=== PATIENT | female | born 1965 | race Caucasian/White ===

== ENCOUNTER 2018-05-30 14:19 | Emergency (ER) | payer BC, MEDICARE ==
[2018-05-30] MEDS ORDERED: NS 0.9% 1000 ML** 1,000 ML IV ONE ×2 (15:21→17:01)
--- NOTE | 2018-05-30 15:21 | ED ---
Abdominal Pain/Female - HPI Summary HPI Summary: This patient is a 53 year old F presenting to [facility] accompanied by a male with a chief complaint of sharp, burning right-sided flank pain since last night. The patient rates the pain 8/10 in severity. Symptoms alleviated by nothing. Patient reports dysuria, bilateral feet edema, fever, chills, decreased urination, nausea, and difficulty ambulating. Patient denies abdominal pain. 4 days ago, her feet and legs swelled to the point of no longer being able to ambulate. The patient says she has been drinking a lot of water but she barely urinates. The flank pain started last night. The patient has Vicodin at home for chronic neck pain, but it is not alleviating the symptoms. PMHX brain tumor removal, chronic neck pain, and SBO repair. No PMHx kidney stones or CHF. Allergy to Alleve. - History of Current Complaint Chief Complaint: EDFlankPain Stated Complaint: RIGHT FLANK PAIN Time Seen by Provider: 05/30/18 15:06 Hx Obtained From: Patient Onset/Duration: Sudden Onset, Lasting Hours Timing: Constant Severity Initially: Moderate Severity Currently: Moderate Pain Intensity: 8 Pain Scale Used: 0-10 Numeric Location: Flank - right Character: Sharp, Burning Alleviating Factor(s): Nothing Associated Signs and Symptoms: Positive: Fever, Urinary Symptoms - dysuria, Nausea Allergies/Adverse Reactions: Allergies Allergy/AdvReac Type Severity Reaction Status Date / Time naproxen [From Aleve] Allergy Anaphylatic Verified 05/30/18 14:50 Shock Home Medications: Home Medications Hydrocodone/Acetaminophen [Hydrocodone/Acetaminophen 10-325 mg] 1 tab PO TID [History Confirmed 05/30/18] Rizatriptan Benzoate [Rizatriptan Benzoate Odt] 10 mg PO DAILY PRN 05/30/18 [ History Confirmed 05/30/18] PMH/Surg Hx/FS Hx/Imm Hx GI History: Reports: Hx Obstructive Bowel - SBO Musculoskeletal History: Reports: Other Musculoskeletal History - chronic neck pain Neurological History: Reports: Other Neuro Impairments/Disorders - Brain tumor s /p surgery - Cancer History Cancer Type, Location and Year: brain tumor s/p surgery - Surgical History Surgery Procedure, Year, and Place: C-SECTIONS,SX FOR ADHESIONS, CX.SP.SX Infectious Disease History: No Infectious Disease History: Denies: Traveled Outside the [place] in Last 30 Days - Family History Known Family History: Negative: Other - kidney stone - Social History Alcohol Use: None Hx Substance Use: No Substance Use Type: Reports: None Hx Tobacco Use: No Smoking Status (MU): Never Smoked Tobacco Review of Systems Positive: Fever, Chills Positive: Nausea. Negative: Abdominal Pain Positive: dysuria, flank pain - right, other - decreased urination Positive: Decreased ROM - difficulty ambulating, Edema - bilateral LE All Other Systems Reviewed And Are Negative: Yes Physical Exam - Summary Physical Exam Summary: Appearance: The patient is well-nourished in no acute distress and in no acute pain. Skin: The skin is warm and dry and skin color reflects adequate perfusion. HEENT: The head is normocephalic and atraumatic. The pupils are equal and reactive. The conjunctivae are clear and without drainage. Nares are patent and without drainage. Mouth reveals moist mucous membranes and the throat is without erythema and exudate. The external ears are intact. The ear canals are patent and without drainage. The tympanic membranes are intact. Neck: The neck is supple with full range of motion and non-tender. There are no carotid bruits. There is no neck vein distension. Respiratory: Chest is non-tender. Lungs are clear to auscultation and breath sounds are symmetrical and equal. Cardiovascular: Heart is regular rate and rhythm. There is no murmur or rub auscultated. Pulses are symmetrical and equal. Abdomen: The abdomen is soft. Mild right mid abdominal tenderness. There are normal bowel sounds heard in all four quadrants and there is no organomegaly palpated. Musculoskeletal: Tenderness over the right paralumbar region. No CVA tenderness. Extremities are non-tender with full range of motion. There is good capillary refill. There is no calf tenderness elicited. Neurological: Patient is alert and oriented to person, place and time. The patient has symmetrical motor strength in all four extremities. Cranial nerves are grossly intact. Deep tendon reflexes are symmetrical and equal in all four extremities. Psychiatric: The patient has an appropriate affect and does not exhibit any anxiety or depression Triage Information Reviewed: Yes Vital Signs On Initial Exam: Initial Vitals Temp Pulse Resp BP Pulse Ox 96.9 F 120 18 143/96 97 05/30/18 14:45 05/30/18 14:45 05/30/18 14:45 05/30/18 14:45 05/30/18 14:45 Vital Signs Reviewed: Yes Diagnostics - Vital Signs Vital Signs Temp Pulse Resp BP Pulse Ox 05/30/18 14:45 96.9 F 120 18 143/96 97 - Laboratory Result Diagrams: 05/30/18 15:45 05/30/18 15:45 Lab Statement: Any lab studies that have been ordered have been reviewed, and results considered in the medical decision making process. - CT Abd/Pelvis CT Interpretation Completed By: Radiologist Summary of CT Findings: 1. NO EVIDENCE FOR ACUTE FINDING. 2. MARKED HEPATOMEGALY AND HEPATIC STEATOSIS WITH INTERVAL INCREASE IN SIZE OF THE LIVER. FROM THE PRIOR STUDY. 3. 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 INCREASE IN SIZE. 4. SMALL PERIUMBILICAL HERNIA CONTAINING FAT. 5. STATUS POST HYSTERECTOMY. 6. GRADE 1- 2 ANTERIOR SPONDYLOLISTHESIS AT THE L5-S1 LEVEL, UNCHANGED. ED physician has reviewed this report. Abdominal Pain Fem Course/Dx - Course Course Of Treatment: Ms. Merida presented to the emergency department complaining of right flank pain. She was nontoxic in appearance but clearly in some pain. She had stable vital signs. She had some right flank and abdominal tenderness but also some lumbar tenderness. She had no CVA tenderness. Workup was obtained including CT scan and labs which were unremarkable aside from a lactic acidosis of 2.8. She received IV fluids for that. She also received some pain medication. I think that likely she has a referred pain from his some lumbar disc disease. I recommended adding Ativan as a muscle relaxer to her pain medication that she is already on for her neck chronically. - Diagnoses Provider Diagnoses: Back pain Discharge - Sign-Out/Discharge Documenting (check all that apply): Patient Departure - discharge Patient Received Moderate/Deep Sedation with Procedure: No - Discharge Plan Condition: Stable Disposition: HOME Prescriptions: LORazepam TAB(*) [Ativan TAB(*)] 1 mg PO Q6H PRN #20 tab MDD 4 PRN Reason: Pain LORazepam TAB(*) [Ativan TAB(*)] 1 mg PO Q6H PRN #20 tab MDD 4 PRN Reason: Pain Patient Education Materials: Back Pain (ED) Referrals: Pool ORTIZ,Tracy Brooke [Primary Care Provider] - 3 Days Additional Instructions: Follow up with Dr. Lanza within three days - Billing Disposition and Condition Condition: STABLE Disposition: Home - Attestation Statements Document Initiated by Dahiana: Yes Documenting Scribe: Serafin Licona Provider For Whom Dahiana is Documenting (Include Credential): Efrain Gomez MD Scribe Attestation: Serafin Newton, scribed for Efrain Gomez MD on 05/30/18 at 2000. Scribe Documentation Reviewed: Yes Provider Attestation: The documentation as recorded by the Serafin howell accurately reflects the service I personally performed and the decisions made by me, Efrain Gomez MD Status of Scribe Document: Viewed
[2018-05-30 15:54] LABS: ABS Basophils 0.1 10^3/ul (0-0.2); ABS Eosinophils 0.2 10^3/ul (0-0.6); ABS Lymphocytes 2.4 10^3/ul (1.0-4.8); ABS Monocytes 0.7 10^3/ul (0-0.8); ABS Neutrophils 6.1 10^3/ul (1.5-7.7); ABS Nucleated RBC 0 10^3/ul; Eosinophil % 2.2 %; Hematocrit 40 % (35-47); Hemoglobin 13.2 g/dl (12.0-16.0); Lymphocyte % 25.5 %; Mean Corpuscular HGB Conc 33 g/dl (31-36); Mean Corpuscular Hemoglobin 31 pg (27-31); Mean Corpuscular Volume 92 fL (80-97); Mean Platelet Volume 7.1 fL (7.4-10.4); Nucleated Red Blood Cells % 0.1; Platelet Count 393 10^3/ul (150-450); Red Blood Count 4.29 10^6/ul (4.00-5.40); Red Cell Distribution Width 13 % (10.5-15); White Blood Count 9.6 10^3/ul (3.5-10.8)
[2018-05-30 16:15] LABS: Albumin 4.1 g/dL (3.2-5.2); Albumin/Globulin Ratio 1.5 (1-3); BUN/Creatinine Ratio 22.5 (8-20); C Reactive Protein 27.2 mg/L (<8.01); Calcium 9.1 mg/dL (8.6-10.3); EGFR African American 103.8 (>60); EGFR Non-African American 85.8 (>60); Globulin 2.8 g/dL (2-4); Potassium 3.8 mmol/L (3.5-5.0); Total Bilirubin 0.2 mg/dL (0.2-1.0); Total Protein 6.9 g/dL (6.4-8.9)
[2018-05-30 17:08] LABS: Urine Appearance Cloudy; Urine Bilirubin Negative (Negative); Urine Blood Negative (Negative); Urine Color Yellow; Urine Glucose Negative (Negative); Urine Ketones Negative (Negative); Urine Nitrite Negative (Negative); Urine Protein Negative (Negative); Urine Specific Gravity 1.008 (1.010-1.030); Urine Urobilinogen Negative (Negative)
[2018-05-30] MEDS ORDERED: HYDROmorphone INJ1* 1 MG/ML SYRINGE IV SLOW PU ONE (17:11)
[2018-05-30] MEDS ORDERED: Ondansetron INJ* 2 MG/ML VIAL IV ONE (17:11)
[2018-05-30 19:51] VITALS: BP 132/87
== END 2018-05-30 19:49 | disposition home or self-care (01) ==
LOC: ED 14:19
DX: M54.5 Low back pain (principal); M43.17 Spondylolisthesis, lumbosacral region; K42.9 Umbilical hernia without obstruction or gangrene; R10.813 Right lower quadrant abdominal tenderness; R30.0 Dysuria; R60.0 Localized edema; R50.9 Fever, unspecified; R11.0 Nausea; R26.2 Difficulty in walking, not elsewhere classified; Z90.710 Acquired absence of both cervix and uterus; Z88.6 Allergy status to analgesic agent
CPT/HCPCS: 36415; 74176; 80053; 81003; 83605; 83690; 84484; 85025; 86140; 96374; 96375; 99283; J1170; J2405

== ENCOUNTER 2021-06-14 11:46 | Inpatient (IN) ==
[2021-06-14] MEDS ORDERED: HYDROmorphone 1 MG/1 ML SYRINGE IV SLOW PU ONE (12:15)
[2021-06-14] MEDS ORDERED: Lactated Ringers 1000 ml BAG 1,000 ML IV ONE ×2 (12:15→16:17)
[2021-06-14 12:43] LABS: ABS Lymphocytes 0.3 10^3/ul (1.0-4.8); ABS Monocytes 0.4 10^3/ul (0-0.8); ABS Neutrophils 13.4 10^3/ul (1.5-7.7); Eosinophil % 0.3 %; Hematocrit 38 % (35-47); Lymphocyte % 2.4 %; Mean Corpuscular HGB Conc 35 g/dL (31-36); Mean Corpuscular Hemoglobin 31 pg (27-31); Mean Corpuscular Volume 90 fL (80-97); Mean Platelet Volume 6.9 fL (7.4-10.4); Platelet Count 379 10^3/uL (150-450); Red Blood Count 4.15 10^6 /uL (3.70-4.87); Red Cell Distribution Width 13 % (10-15); White Blood Count 14.3 10^3/uL (3.5-10.8)
[2021-06-14 13:32] LABS: Albumin 4.1 g/dL (3.2-5.2); Calcium 8.9 mg/dL (8.6-10.3); Magnesium 1.4 mg/dL (1.9-2.7); Potassium 4.3 mmol/L (3.5-5.0); Total Bilirubin 0.5 mg/dL (0.2-1.0)
[2021-06-14 13:39] LABS: Albumin/Globulin Ratio 1.6 (1-3); Globulin 2.5 g/dL (2-4); Total Protein 6.6 g/dL (6.4-8.9); eGFR CKD-EPI 94.3 (>60)
[2021-06-14] MEDS ORDERED: Albuterol HFA INHALER 8 gm MDI INH PRN (14:51)
[2021-06-14] MEDS ORDERED: Piperacillin/Tazobac ADVAN 3.375 GM in NS 0.9% 100 ml BAG 100 ML IV ONE (14:52)
[2021-06-14] MEDS ORDERED: Zosyn per Pharmacy NOTE FOLLOW UP SCH (15:00)
[2021-06-14] MEDS: Ondansetron 4 mg VIAL 2 MG/ML 2 ml VIAL IV PRN (16:22)
[2021-06-14 16:37] LABS: Urine Appearance Clear; Urine Bilirubin Negative (Negative); Urine Blood Negative (Negative); Urine Color Yellow; Urine Glucose 2+(150 mg/dL) (Negative); Urine Ketones 1+ (Negative); Urine Nitrite Negative (Negative); Urine Protein Negative (Negative); Urine Specific Gravity 1.047 (1.002-1.030); Urine Urobilinogen Negative (Negative)
[2021-06-14] MEDS ORDERED: Acetaminophen IV 1 GM/100ML 100 ML IV PRN (17:45)
[2021-06-14] MEDS ORDERED: Dextrose 50% Syringe 50 ml 25 GM/50 ML SYRINGE IV PUSH PRN (17:50)
[2021-06-14] MEDS: Cefepime 2 GM in Dextrose 2 GM/50 ML BAG IV SCH (19:19)
[2021-06-14] MEDS: Lactated Ringers 1000 ml BAG 1,000 ML IV SCH (19:20)
[2021-06-14] MEDS ORDERED: ZOSYN 3.375 GM Q8H per EXTENDED INFUSION IV SCH (19:30)
[2021-06-14] MEDS: metroNIDAZOLE IV 500 MG/100ML 500 MG/100 ML BAG IVPB SCH (19:53)
[2021-06-14] MEDS ORDERED: Insulin GLARGINE 100 un/ml 10 ml VIAL SUBCUT SCH (21:00)
[2021-06-14] MEDS: Vancomycin SOL ORALSYR 50 MG/ML ML PO SCH (22:36)
[2021-06-14] MEDS: Heparin 5000 UNITS/ML 1 mL VIAL SUBCUT SCH (22:37)
[2021-06-15] MEDS: Ondansetron 4 mg VIAL 2 MG/ML 2 ml VIAL IV PRN (01:38)
[2021-06-15] MEDS: metroNIDAZOLE IV 500 MG/100ML 500 MG/100 ML BAG IVPB SCH ×3 (03:59→20:39)
[2021-06-15] MEDS: Cefepime 2 GM in Dextrose 2 GM/50 ML BAG IV SCH (05:15)
[2021-06-15] MEDS: Lactated Ringers 1000 ml BAG 1,000 ML IV SCH (05:28)
[2021-06-15] MEDS: Heparin 5000 UNITS/ML 1 mL VIAL SUBCUT SCH ×3 (06:13→20:37)
[2021-06-15 06:28] LABS: ABS Lymphocytes 1.6 10^3/ul (1.0-4.8); ABS Monocytes 0.7 10^3/ul (0-0.8); ABS Neutrophils 9.1 10^3/ul (1.5-7.7); Eosinophil % 0.4 %; Hematocrit 33 % (35-47); Hemoglobin 11.5 g/dL (12.0-16.0); Lymphocyte % 13.7 %; Mean Corpuscular HGB Conc 35 g/dL (31-36); Mean Corpuscular Hemoglobin 31 pg (27-31); Mean Corpuscular Volume 90 fL (80-97); Platelet Count 355 10^3/uL (150-450); Red Cell Distribution Width 13 % (10-15); White Blood Count 11.4 10^3/uL (3.5-10.8)
[2021-06-15 06:43] LABS: INR 1.05 (0.86-1.15)
[2021-06-15 06:56] LABS: Albumin 3.6 g/dL (3.2-5.2); Albumin/Globulin Ratio 1.6 (1-3); C Reactive Protein 124.95 mg/L (<8.01); Calcium 8.6 mg/dL (8.6-10.3); Globulin 2.2 g/dL (2-4); Magnesium 1.5 mg/dL (1.9-2.7); Potassium 3.6 mmol/L (3.5-5.0); Total Bilirubin 0.3 mg/dL (0.2-1.0); Total Protein 5.8 g/dL (6.4-8.9)
[2021-06-15] MEDS ORDERED: Magnesium Sulf 4 GM/100 ML IV 4,000 MG/100 ML BAG IVPB ONE (07:35)
[2021-06-15] MEDS: Vancomycin SOL ORALSYR 50 MG/ML ML PO SCH ×4 (08:17→21:10)
[2021-06-15] MEDS ORDERED: Potassium Chlor 20 meq TAB.ER PO ONE (18:38)
[2021-06-15] MEDS ORDERED: Insulin GLARGINE 100 un/ml 10 ml VIAL SUBCUT SCH (21:00)
[2021-06-16] MEDS: metroNIDAZOLE IV 500 MG/100ML 500 MG/100 ML BAG IVPB SCH ×3 (04:37→21:53)
[2021-06-16] MEDS: Heparin 5000 UNITS/ML 1 mL VIAL SUBCUT SCH ×3 (06:22→22:11)
[2021-06-16 06:51] LABS: ABS Basophils 0.1 10^3/ul (0-0.2); ABS Eosinophils 0.1 10^3/ul (0-0.6); ABS Lymphocytes 2.6 10^3/ul (1.0-4.8); ABS Monocytes 0.8 10^3/ul (0-0.8); ABS Neutrophils 8.3 10^3/ul (1.5-7.7); Hematocrit 32 % (35-47); Lymphocyte % 21.7 %; Mean Corpuscular HGB Conc 35 g/dL (31-36); Mean Corpuscular Hemoglobin 31 pg (27-31); Mean Corpuscular Volume 90 fL (80-97); Mean Platelet Volume 7.2 fL (7.4-10.4); Nucleated Red Blood Cells % 0.1; Platelet Count 331 10^3/uL (150-450); Red Blood Count 3.55 10^6 /uL (3.70-4.87); Red Cell Distribution Width 13 % (10-15); White Blood Count 11.9 10^3/uL (3.5-10.8)
[2021-06-16 07:10] LABS: Calcium 8.5 mg/dL (8.6-10.3); Magnesium 2.3 mg/dL (1.9-2.7); Potassium 3.7 mmol/L (3.5-5.0); eGFR CKD-EPI 104.6 (>60)
[2021-06-16] MEDS: Vancomycin SOL ORALSYR 50 MG/ML ML PO SCH ×4 (07:53→22:10)
[2021-06-16] MEDS: Ondansetron 4 mg VIAL 2 MG/ML 2 ml VIAL IV PRN ×3 (08:23→21:11)
[2021-06-16] MEDS: Lactated Ringers 1000 ml BAG 1,000 ML IV SCH ×2 (10:51→21:52)
[2021-06-16] MEDS ORDERED: Insulin GLARGINE 100 un/ml 10 ml VIAL SUBCUT SCH ×2 (21:00)
[2021-06-17] MEDS: metroNIDAZOLE IV 500 MG/100ML 500 MG/100 ML BAG IVPB SCH ×3 (03:52→21:10)
[2021-06-17] MEDS: Heparin 5000 UNITS/ML 1 mL VIAL SUBCUT SCH ×3 (05:31→21:41)
[2021-06-17] MEDS: Ondansetron 4 mg VIAL 2 MG/ML 2 ml VIAL IV PRN (05:37)
[2021-06-17 05:49] LABS: ABS Basophils 0.1 10^3/ul (0-0.2); ABS Eosinophils 0.1 10^3/ul (0-0.6); ABS Lymphocytes 2.6 10^3/ul (1.0-4.8); ABS Monocytes 0.7 10^3/ul (0-0.8); ABS Neutrophils 6.5 10^3/ul (1.5-7.7); Eosinophil % 0.7 %; Hematocrit 33 % (35-47); Hemoglobin 11.1 g/dL (12.0-16.0); Lymphocyte % 26.1 %; Mean Corpuscular HGB Conc 34 g/dL (31-36); Mean Corpuscular Hemoglobin 31 pg (27-31); Mean Corpuscular Volume 90 fL (80-97); Mean Platelet Volume 7.1 fL (7.4-10.4); Platelet Count 353 10^3/uL (150-450); Red Blood Count 3.61 10^6 /uL (3.70-4.87); Red Cell Distribution Width 13 % (10-15); White Blood Count 9.9 10^3/uL (3.5-10.8)
[2021-06-17 06:09] LABS: Calcium 8.7 mg/dL (8.6-10.3); Potassium 3.6 mmol/L (3.5-5.0); eGFR CKD-EPI 106.8 (>60)
[2021-06-17] MEDS: Vancomycin SOL ORALSYR 50 MG/ML ML PO SCH ×4 (08:39→21:41)
[2021-06-17] MEDS: KCL 10 MEQ/50 ML IVPREMIX 10 MEQ/50 ML BAG IV SCH ×3 (08:59→15:16)
[2021-06-17] MEDS ORDERED: Insulin GLARGINE 100 un/ml 10 ml VIAL SUBCUT SCH (21:00)
[2021-06-18] MEDS: metroNIDAZOLE IV 500 MG/100ML 500 MG/100 ML BAG IVPB SCH (03:39)
[2021-06-18] MEDS: Heparin 5000 UNITS/ML 1 mL VIAL SUBCUT SCH (06:03)
[2021-06-18 06:59] LABS: ABS Eosinophils 0.2 10^3/ul (0-0.6); ABS Lymphocytes 3.6 10^3/ul (1.0-4.8); ABS Monocytes 0.7 10^3/ul (0-0.8); Eosinophil % 1.9 %; Hematocrit 33 % (35-47); Hemoglobin 11.4 g/dL (12.0-16.0); Lymphocyte % 33.7 %; Mean Corpuscular HGB Conc 34 g/dL (31-36); Mean Corpuscular Hemoglobin 31 pg (27-31); Mean Corpuscular Volume 91 fL (80-97); Mean Platelet Volume 6.7 fL (7.4-10.4); Nucleated Red Blood Cells % 0.1; Platelet Count 400 10^3/uL (150-450); Red Blood Count 3.65 10^6 /uL (3.70-4.87); Red Cell Distribution Width 13 % (10-15); White Blood Count 10.5 10^3/uL (3.5-10.8)
[2021-06-18 07:54] LABS: Calcium 8.9 mg/dL (8.6-10.3); Magnesium 1.9 mg/dL (1.9-2.7); Potassium 3.9 mmol/L (3.5-5.0); eGFR CKD-EPI 104.2 (>60)
[2021-06-18] MEDS: Ondansetron 4 mg VIAL 2 MG/ML 2 ml VIAL IV PRN (08:01)
[2021-06-18 08:04] VITALS: BP 151/87
[2021-06-18] MEDS: Vancomycin SOL ORALSYR 50 MG/ML ML PO SCH (08:41)
== END 2021-06-18 11:20 | disposition home or self-care (01) | DRG 872 ==
LOC: ED 11:46 → EDHOLD 11:46 → SUATTDRO 14:50 → EDHOLD 16:43 → MED 16:53
PROVIDERS: ADMIT Student in an Organized Health Care Education/Training Program; ATTEND Internal Medicine